=== PATIENT | male | born 1955 | race Caucasian/White ===

== ENCOUNTER 2018-12-19 09:58 | Emergency (ER) | payer OTHER ==
[~2018-12-19] VITALS: Ht 193 cm; Wt 110.0 kg
[2018-12-19] MEDS ORDERED: BACTRIM DS1 TAB PO (10:14)
[2018-12-19 10:28] VITALS: BP 148/72
== END 2018-12-19 10:28 | disposition home or self-care (01) | DRG 594 ==
LOC: ED 09:58
DX: L97.429 Non-pressure chronic ulcer of left heel and midfoot with unspecified severity (principal); L08.9 Local infection of the skin and subcutaneous tissue, unspecified

== ENCOUNTER 2018-12-27 11:43 | Emergency (ER) | payer OTHER ==
[~2018-12-27] VITALS: Ht 193 cm; Wt 105.6 kg
[~2018-12-27 11:43] MED LIST: BACTRIM DS1 TAB PO
[2018-12-27] MEDS ORDERED: AVODART0.5 MG PO (12:06)
[2018-12-27] MEDS ORDERED: MICARDIS40 MG PO (12:07)
[2018-12-27] MEDS ORDERED: XARELTO20 MG PO (12:07)
[2018-12-27] MEDS ORDERED: BISOPROL FUM5 MG PO (12:08)
[2018-12-27] MEDS ORDERED: CRESTOR10 MG PO (12:08)
[2018-12-27] MEDS ORDERED: UROXATRAL10 MG PO (12:09)
[2018-12-27] MEDS ORDERED: PANTOPRAZOLE SO40 MG PO (12:09)
[2018-12-27] MEDS ORDERED: HYDREA 500500 MG/CAP PO (12:09)
[2018-12-27] MEDS ORDERED: CEPHALEXIN500 M1 PO (12:10)
[2018-12-27 12:12] VITALS: BP 124/76
== END 2018-12-27 12:22 | disposition home or self-care (01) | DRG 603 ==
LOC: ED 11:43
DX: L03.116 Cellulitis of left lower limb (principal); M79.672 Pain in left foot